=== PATIENT | male | born 1990 | race African-American/Black ===

== ENCOUNTER 2018-06-06 11:37 | Emergency (ER) | payer OTHER ==
[~2018-06-06] VITALS: Ht 190.5 cm; Wt 79.4 kg
[2018-06-06 11:38] VITALS: BP 144/49
[2018-06-06] MEDS ORDERED: ZYRTEC10 MG PO (12:14)
[2018-06-06] MEDS ORDERED: MEDROLDOSEPACK PO (12:14)
[2018-06-06] MEDS ORDERED: LOTRISONE CREAM15 GM TOP (12:14)
[2018-06-06] MEDS ORDERED: ZANTAC 150MG T150 MG PO (12:14)
== END 2018-06-06 12:46 | disposition home or self-care (01) ==
LOC: ER 11:37
DX: L25.9 Unspecified contact dermatitis, unspecified cause (principal); P38.9 Omphalitis without hemorrhage

== ENCOUNTER 2019-04-10 12:05 | Emergency (ER) | payer OTHER ==
[~2019-04-10] VITALS: Ht 190.5 cm; Wt 79.4 kg
[~2019-04-10 12:05] MED LIST: LOTRISONE CREAM15 GM TOP; MEDROLDOSEPACK PO; ZANTAC 150MG T150 MG PO; ZYRTEC10 MG PO
[2019-04-10] MEDS ORDERED: IBUPROFEN 600600 M1 PO (13:11)
[2019-04-10 14:05] VITALS: BP 132/53
== END 2019-04-10 14:08 | disposition home or self-care (01) ==
LOC: ER 12:05
DX: S93.401A Sprain of unspecified ligament of right ankle, initial encounter (principal); F17.210 Nicotine dependence, cigarettes, uncomplicated; Z98.890 Other specified postprocedural states; X50.0XXA Overexertion from strenuous movement or load, initial encounter; Y92.89 Other specified places as the place of occurrence of the external cause; Y93.67 Activity, basketball; Y99.8 Other external cause status